=== PATIENT | male | born 1995 | race American Indian/Alaskan Native ===

== ENCOUNTER 2019-12-12 03:42 | Emergency (ER) | payer SELFPAY ==
--- NOTE | 2019-12-12 04:56 | XRay Report ---
CHEST 2 VIEWS INDICATION / CLINICAL INFORMATION: Productive cough for 2 weeks. Generalized weakness, fever and body aches. COMPARISON: None available. FINDINGS: SUPPORT DEVICES: None. HEART / MEDIASTINUM: There is a median sternotomy. The heart size and pulmonary vasculature are anival l. LUNGS / PLEURA: No significant pulmonary or pleural abnormality. No pneumothorax. ADDITIONAL FINDINGS: No significant additional findings. IMPRESSION: No acute findings. There is no evidence of pneumonia. Signer Name: Simone Kong MD Signed: 12/12/2019 4:52 AM Workstation Name: [id number]
--- NOTE | 2019-12-12 09:57 | Emergency Department Report ---
ED General Adult HPI - General Chief complaint: Upper Respiratory Infection Stated complaint: FLU SYMPTOMS COUGH X2WKS Time Seen by Provider: 12/12/19 09:21 Source: patient Mode of arrival: Ambulatory Limitations: No Limitations - History of Present Illness Initial comments: 24-year-old -[place] male patient. Of congenital pulmonary stenosis and asthma presents with complaints of cough, chills, body aches, and fever 3 weeks. He states cough is productive of yellow mucus and his symptoms seem to be worsening. He states his fever was subjective and denies any hemoptysis or chest pain. He admits to congestion and mild shortness of breath with exertion. Severity scale (0 -10): 0 - Related Data Previous Rx's Medication Instructions Recorded Last Taken Type Benzonatate 200 mg PO TID PRN #30 capsule 12/12/19 Unknown Rx Doxycycline Monohydrate 100 mg PO BID 10 Days #20 capsule 12/12/19 Unknown Rx Allergies Allergy/AdvReac Type Severity Reaction Status Date / Time No Known Allergies Allergy Verified 12/12/19 03:55 ED Review of Systems ROS: Stated complaint: FLU SYMPTOMS COUGH X2WKS Other details as noted in HPI Constitutional: denies: chills, fever Eyes: denies: vision change Respiratory: cough, shortness of breath, SOB with exertion. denies: orthopnea, SOB at rest, wheezing Cardiovascular: denies: chest pain, palpitations Endocrine: no symptoms reported Gastrointestinal: denies: abdominal pain, nausea, vomiting, diarrhea Musculoskeletal: denies: back pain, joint swelling, arthralgia Skin: denies: rash, lesions Neurological: denies: headache, weakness, paresthesias Psychiatric: denies: anxiety, depression Hematological/Lymphatic: denies: easy bleeding, easy bruising ED Past Medical Hx - Past Medical History Previous Medical History?: Yes Hx Asthma: Yes Additional medical history: pulmonary stenosis - Surgical History Past Surgical History?: Yes Additional Surgical History: bilateral knee. heart surgery - Social History Smoking Status: Never Smoker Substance Use Type: None - Medications Home Medications: Home Medications Medication Instructions Recorded Confirmed Last Taken Type Benzonatate 200 mg PO TID PRN #30 capsule 12/12/19 Unknown Rx Doxycycline Monohydrate 100 mg PO BID 10 Days #20 capsule 12/12/19 Unknown Rx ED Physical Exam - General Limitations: No Limitations General appearance: alert, in no apparent distress - Head Head exam: Present: atraumatic, normocephalic - Eye Eye exam: Present: normal appearance - ENT ENT exam: Present: mucous membranes moist - Neck Neck exam: Present: normal inspection - Respiratory Respiratory exam: Present: rales (left middle lung lobe), rhonchi (left middle lung lobe). Absent: respiratory distress, wheezes, stridor, chest wall tenderness, accessory muscle use - Cardiovascular Cardiovascular Exam: Present: regular rate, normal rhythm, other (murmur noted, patient states known history). Absent: rubs, gallop - GI/Abdominal GI/Abdominal exam: Present: soft, normal bowel sounds. Absent: distended, tenderness - Extremities Exam Extremities exam: Present: normal inspection. Absent: calf tenderness - Back Exam Back exam: Present: normal inspection - Neurological Exam Neurological exam: Present: alert, oriented X3 - Psychiatric Psychiatric exam: Present: normal affect, normal mood - Skin Skin exam: Present: warm, dry, intact, normal color. Absent: rash ED Course Vital Signs 12/12/19 12/12/19 12/12/19 03:55 08:01 09:16 Temperature 99.5 F 98.5 F 98.9 F Pulse Rate 94 H 85 78 Respiratory 18 16 25 H Rate Blood Pressure 141/92 137/71 Blood Pressure 122/69 [Left] O2 Sat by Pulse 94 95 96 Oximetry ED Medical Decision Making - Lab Data Result diagrams: 12/12/19 10:37 12/12/19 10:37 Lab Results 12/12/19 12/12/19 Range/Units 10:37 10:37 WBC 15.0 H (4.5-11.0) K/mm3 RBC 4.81 (3.65-5.03) M/mm3 Hgb 12.7 (11.8-15.2) gm/dl Hct 39.8 (35.5-45.6) % MCV 83 L (84-94) fl MCH 26 L (28-32) pg MCHC 32 (32-34) % RDW 14.1 (13.2-15.2) % Plt Count 403 (140-440) K/mm3 Lymph % (Auto) 20.7 (13.4-35.0) % [place] % (Auto) 6.7 (0.0-7.3) % Eos % (Auto) 0.4 (0.0-4.3) % Baso % (Auto) 0.4 (0.0-1.8) % Lymph # 3.1 (1.2-5.4) K/mm3 [place] # 1.0 H (0.0-0.8) K/mm3 Eos # 0.1 (0.0-0.4) K/mm3 Baso # 0.1 (0.0-0.1) K/mm3 Seg Neutrophils % 71.8 H (40.0-70.0) % Seg Neutrophils # 10.7 H (1.8-7.7) K/mm3 Sodium 143 (137-145) mmol/L Potassium 4.3 (3.6-5.0) mmol/L Chloride 101.3 (98-107) mmol/L Carbon Dioxide 25 (22-30) mmol/L Anion Gap 21 mmol/L BUN 10 (9-20) mg/dL Creatinine 0.8 (0.8-1.5) mg/dL Estimated GFR > 60 ml/min BUN/Creatinine Ratio 13 % Glucose 105 H (75-100) mg/dL Calcium 9.4 (8.4-10.2) mg/dL Total Bilirubin 0.30 (0.1-1.2) mg/dL AST 43 H (5-40) units/L ALT 63 H (7-56) units/L Alkaline Phosphatase 65 (35-129) units/L Total Protein 7.0 (6.3-8.2) g/dL Albumin 3.9 (3.9-5) g/dL Albumin/Globulin Ratio 1.3 % - Radiology Data Radiology results: report reviewed CHEST 2 VIEWS INDICATION / CLINICAL INFORMATION: Productive cough for 2 weeks. Generalized weakness, fever and body aches. COMPARISON: None available. FINDINGS: SUPPORT DEVICES: None. HEART / MEDIASTINUM: There is a median sternotomy. The heart size and pulmonary vasculature are normal. LUNGS / PLEURA: No significant pulmonary or pleural abnormality. No pneumothorax. ADDITIONAL FINDINGS: No significant additional findings. IMPRESSION: No acute findings. There is no evidence of pneumonia - Medical Decision Making 24-year-old male patient presents with worsening cough, body aches, and chills and subjective fever for 3 weeks. Vitals are normal. Chest x-ray impression states no acute findings, however left middle lung lobe appears to be slightly abnormal-Rales and rhonchi also noted in the left middle lung lobe on exam. WBCs are 15. Patient is nontoxic appearing and stable for discharge home. Given these findings and duration of symptoms, now worsening, will treat for bacterial lower respiratory tract infection with doxycycline. Recommend follow- up with primary care provider at [facility]. Discussed care plan and very strict return precautions in great detail with patient who verbalizes u nderstanding Critical care attestation.: If time is entered above; I have spent that time in minutes in the direct care of this critically ill patient, excluding procedure time. ED Disposition Clinical Impression: Lower respiratory infection Disposition: DC-01 TO HOME OR SELFCARE Is pt being admited?: No Condition: Stable Instructions: Pneumonia (ED) Prescriptions: Benzonatate 200 mg PO TID PRN #30 capsule PRN Reason: Cough Doxycycline Monohydrate 100 mg PO BID 10 Days #20 capsule Referrals: [facility] [Provider Group] - 3-5 Days Forms: Work/School Release Form(ED)
[2019-12-12] MEDS ORDERED: BENZONATATE 100 MG CAP PO ONE (09:58)
[2019-12-12 11:01] LABS: Basophils # (Auto) 0.1 K/mm3 (0.0-0.1); Basophils % (Auto) 0.4 % (0.0-1.8); Eosinophils # (Auto) 0.1 K/mm3 (0.0-0.4); Eosinophils % (Auto) 0.4 % (0.0-4.3); Hematocrit 39.8 % (35.5-45.6); Hemoglobin 12.7 gm/dl (11.8-15.2); Lymphocytes # (Auto) 3.1 K/mm3 (1.2-5.4); Lymphocytes % (Auto) 20.7 % (13.4-35.0); Mean Corpuscular HGB Conc 32 % (32-34); Mean Corpuscular Volume 83 fl (84-94); Monocytes % (Auto) 6.7 % (0.0-7.3); Platelet Count 403 K/mm3 (140-440); Red Blood Count 4.81 M/mm3 (3.65-5.03); Red Cell Distribution Width 14.1 % (13.2-15.2)
[2019-12-12 11:25] LABS: Alanine Aminotransferase 63 units/L (7-56); Albumin 3.9 g/dL (3.9-5); BUN/Creatinine Ratio 13; Blood Urea Nitrogen 10 mg/dL (9-20); Calcium 9.4 mg/dL (8.4-10.2); Hemolysis Index 15
[2019-12-12 12:38] VITALS: BP 122/80
== END 2019-12-12 12:38 | disposition home or self-care (01) ==
LOC: ED 03:42
DX: J06.9 Acute upper respiratory infection, unspecified (principal); J45.909 Unspecified asthma, uncomplicated
CPT/HCPCS: 36415; 71046; 80053; 85025; 99283